=== PATIENT | female | born 1980 | race Caucasian/White ===

== ENCOUNTER 2018-12-11 06:31 | Inpatient (IN) | payer BC ==
[~2018-12-11 06:31] MED LIST: Sodium Chloride 0.9% 10 ML SDV IV PRN; Sodium Chloride 0.9% 10 ML Syringe FLUSH PRN; Sodium Chloride 0.9% 2.5 ML Syringe FLUSH PRN; ceFAZolin 2 GM in Premix Bag 1 BAG IV ONE
[2018-12-11] MEDS: Lactated Ringers 1,000 ML IV SCH ×3 (07:00→18:16)
--- NOTE | 2018-12-11 07:12 | PCM.PREANE ---
Preanesthetic Assessment - Anesthesia/Transfusion/Family Hx Anesthesia History: Prior Anesthesia Without Reaction Other Type of Anesthesia Reaction Comment: "mother had hard time coming out of anesthesia" Family History of Anesthesia Reaction: No Transfusion History: No Prior Transfusion(s) Intubation History: Unknown - Review of Systems General: No Symptoms Pulmonary: No Symptoms Cardiovascular: No Symptoms Gastrointestinal: Abdominal Pain, Nausea Neurological: No Symptoms Other: Reports: None - Physical Assessment NPO Status Date: 12/10/18 NPO Status Time: 23:00 Vital Signs: Last Vital Signs Temp 36.6 C 12/11/18 06:57 Pulse 72 12/11/18 06:57 Resp 16 12/11/18 06:57 BP 128/77 12/11/18 06:57 Pulse Ox 94 L 12/11/18 06:57 Height: 5 ft 5 in Weight: 97.522 kg ASA Class: 2 Mental Status: Alert & Oriented x3 Airway Class: Mallampati = 2 Dentition: Reports: Normal Dentition Thyro-Mental Finger Breadths: 3 Mouth Opening Finger Breadths: 3 ROM/Head Extension: Full Lungs: Clear to Auscultation, Normal Respiratory Effort Cardiovascular: Regular Rate, Regular Rhythm - Lab Values: Laboratory Last Values Urine HCG, Qual NEGATIVE (NEGATIVE) 12/11/18 06:42 - Allergies Allergies/Adverse Reactions: Allergies Allergy/AdvReac Type Severity Reaction Status Date / Time No Known Allergies Allergy Verified 12/04/18 10:43 - Blood Blood Available: No - Anesthesia Plan Pre-Op Medication Ordered: None - Acknowledgements Anesthesia Type Planned: General Anesthesia Pt an Appropriate Candidate for the Planned Anesthesia: Yes Alternatives and Risks of Anesthesia Discussed w Pt/Guardian: Yes Pt/Guardian Understands and Agrees with Anesthesia Plan: Yes PreAnesthesia Questionnaire HEENT History: Reports: None Cardiovascular History: Reports: None, Other (See Below) (occasional palpitations (on everage every other month), last one 3 months ago) Respiratory History: Reports: Other (See Below) Other Respiratory History: sleep study done on Nov 15, to be fitted with CPAP mask Gastrointestinal History: Reports: Cholelithiasis, Other (See Below) Other Gastrointestinal History: occasional heartburn Genitourinary History: Reports: UTI, Recurrent SOLE PAINTER History: Reports: Musculoskeletal History: Reports: Fracture Other Musculoskeletal History: hx fx arm as a child Neurological History: Reports: None Psychiatric History: Reports: None Endocrine/Metabolic History: Reports: Obesity/BMI 30+ Hematologic History: Reports: Anemia Other Hematologic History: anemia with pregnancies Immunologic History: Reports: None Oncologic (Cancer) History: Reports: None Dermatologic History: Reports: None - Past Surgical History Head Surgeries/Procedures: Reports: None HEENT Surgical History: Reports: None Cardiovascular Surgical History: Reports: None Respiratory Surgical History: Reports: None GI Surgical History: Reports: None Female Surgical History: Reports: None Endocrine Surgical History: Reports: None Neurological Surgical History: Reports: None Musculoskeletal Surgical History: Reports: None Oncologic Surgical History: Reports: None Dermatological Surgical History: Reports: None - SUBSTANCE USE Smoking Status *Q: Former Smoker (quit 3 years ago (smoked 1 ppd)) Tobacco Use Within Last Twelve Months: No Days Per Week of Alcohol Use: 0 Recreational Drug Use History: No - HOME MEDS Home Medications: Home Meds Ondansetron [Zofran] 4 mg PO ASDIRECTED PRN 12/04/18 [History] - CURRENT (IN HOUSE) MEDS Current Meds: Current Medications Lactated Ringer's (Ringers, Lactated) 1,000 mls @ 125 mls/hr IV ASDIRECTED DENNIS Last Admin: 12/11/18 07:00 Dose: 125 mls/hr Sodium Chloride (Saline Flush) 10 ml FLUSH ASDIRECTED PRN PRN Reason: Keep Vein Open Sodium Chloride (Saline Flush) 2.5 ml FLUSH ASDIRECTED PRN PRN Reason: Keep Vein Open Sodium Chloride (Normal Saline) 10 ml IV ASDIRECTED PRN PRN Reason: IV Use Discontinued Medications Cefazolin Sodium/Dextrose 2 gm (/ Premix) 50 mls @ 100 mls/hr IV ONETIME ONE Stop: 12/10/18 12:49
[2018-12-11] MEDS ORDERED: Propofol 200 MG/20 ML SDV ONE (07:23)
[2018-12-11] MEDS ORDERED: Midazolam 1 MG/ML 2 ML SDV ONE (07:23)
[2018-12-11] MEDS ORDERED: fentaNYL 250 MCG/5 ML SDV ONE (07:23)
[2018-12-11] MEDS ORDERED: Glycopyrrolate 0.2 MG/ML SDV ONE (07:25)
[2018-12-11] MEDS ORDERED: Ketorolac 30 MG/ML SDV ONE (07:25)
[2018-12-11] MEDS ORDERED: Neostigmine Methylsulfate 1 MG/ML 5 ML Syringe ONE (07:25)
[2018-12-11] MEDS ORDERED: Ondansetron 4 MG/2 ML SDV ONE (07:25)
[2018-12-11] MEDS ORDERED: Lidocaine 2% 5 ML SDV ONE (07:25)
[2018-12-11] MEDS ORDERED: Dexamethasone 4 MG/ML 5 ML MDV ONE (07:25)
[2018-12-11] MEDS ORDERED: Rocuronium 100 MG/10 ML Syringe ONE (07:25)
[2018-12-11] MEDS ORDERED: Bupivacaine 0.5% 30 ML SDV ONE ×2 (07:37→09:24)
[2018-12-11] MEDS ORDERED: Sodium Chloride 0.9% 20 ML ONE (08:02)
[2018-12-11] MEDS ORDERED: ceFAZolin 1 GM Vial ONE ×2 (08:02→09:24)
[2018-12-11] MEDS ORDERED: fentaNYL 100 MCG/2 ML SDV ONE ×2 (08:43→09:08)
[2018-12-11] MEDS ORDERED: Ondansetron 4 MG/2 ML SDV IVPUSH PRN (09:18)
[2018-12-11] MEDS ORDERED: HYDROmorphone 2 MG/ML Syringe IVPUSH ONE ×2 (09:18→09:40)
[2018-12-11] MEDS ORDERED: fentaNYL 100 MCG/2 ML SDV IVPUSH PRN (09:39)
[2018-12-11] MEDS ORDERED: HYDROmorphone 2 MG/ML Syringe ONE (09:48)
[2018-12-11] MEDS ORDERED: Phenylephrine/Normal Saline 100 MCG/ML 10 ML Syringe ONE (10:36)
--- NOTE | 2018-12-11 11:05 | PCM.OPNOTE ---
- General Post-Op/Procedure Note Date of Surgery/Procedure: 12/11/18 Operative Procedure(s): Laparoscopic converted to open cholecystectomy Findings: Severely inflamed gallbladder with a large stone impacted in the cystic duct Pre Op Diagnosis: symptomatic cholelithiasis Post-Op Diagnosis: Acute on chronic cholecystitis with cholelithiasis and hydrops Anesthesia Technique: General ET Tube Primary Surgeon: Radha Glover Secondary Surgeon: Finn Handy Fluid Replacement, Intraop: 1,700 Output, Urine Amount: 100 EBL in mLs: 200 Condition: Good
[2018-12-11] MEDS ORDERED: Promethazine 25 MG/ML SDV IM PRN (11:06)
[2018-12-11] MEDS ORDERED: HYDROmorphone 2 MG/ML Syringe IVPUSH PRN (11:06)
[2018-12-11] MEDS ORDERED: diphenhydrAMINE 50 MG/ML SDV IVPUSH PRN (11:06)
[2018-12-11] MEDS ORDERED: Lactated Ringers 500 ML IV SCH (11:15)
--- NOTE | 2018-12-11 12:48 | PCM.POSTAN ---
POST ANESTHESIA ASSESSMENT - MENTAL STATUS Mental Status: Alert, Oriented - VITAL SIGNS Vital Signs: Last Vital Signs Temp 36.2 C 12/11/18 11:08 Pulse 87 12/11/18 12:13 Resp 10 L 12/11/18 12:13 BP 108/70 12/11/18 12:13 Pulse Ox 95 12/11/18 12:13 - RESPIRATORY Respiratory Status: Respiratory Rate WNL, Airway Patent, O2 Saturation Stable - CARDIOVASCULAR CV Status: Pulse Rate WNL, Blood Pressure Stable - GASTROINTESTINAL GI Status: No Symptoms - PAIN Pain Score: 3 - POST OP HYDRATION Hydration Status: Adequate & Stable - OBSERVATIONS Free Text/Narrative:: No anesthesia problems
[2018-12-11] MEDS ORDERED: FLU Vacc QS2019-20(6MOS+)/PF 60 MCG/0.5 ML SYRINGE IM ONE (15:30)
[2018-12-11] MEDS: Ketorolac 15 MG/ML SDV IVPUSH SCH ×2 (16:13→23:09)
--- NOTE | 2018-12-11 16:56 | OR ---
SURGEON: RADHA SAHU MD DATE OF PROCEDURE: 12/11/2018 PREOPERATIVE DIAGNOSIS: Symptomatic cholelithiasis. POSTOPERATIVE DIAGNOSIS: Severe chronic cholecystitis with cholelithiasis. PROCEDURE PERFORMED: Laparoscopic converted to open cholecystectomy. PRIMARY SURGEON: Radha Sahu MD. SECONDARY SURGEON: Finn Handy M.D. FLUIDS: 1700 mL crystalloid. ESTIMATED BLOOD LOSS: 200 mL. URINE OUTPUT: 100 mL. ANESTHESIA: General endotracheal anesthesia. FINDINGS: Severely inflamed gallbladder with large stone impacted in the cystic duct. COMPLICATIONS: None. INDICATIONS: The patient is a 38-year-old female who presented to my office with recent episode of symptomatic cholelithiasis. I explained to the patient the need for a cholecystectomy. I explained the laparoscopic approach, but I explained that should I be unable to perform it safely, I will convert it to open. The patient and I discussed the procedure, expected perioperative course, and risks including bleeding, infection, or damage to surrounding structures. The patient verbalized understanding and wishes to proceed. PROCEDURE IN DETAIL: The patient was brought to the OR and placed on the OR table in supine position. A time-out was completed verifying the patient's name, age, date of , allergies, and procedure to be performed. General endotracheal anesthesia was induced. The left arm was tucked to the patient's side and a Washington catheter placed. The abdomen was prepped and draped in usual standard fashion. I anesthetized the infraumbilical fold with 0.5% Marcaine plain. I then used an 11 blade to make an incision along this fold. Cautery was used to dissect down to the level of the subcutaneous fat. I then bluntly dissected down to the fascia. The fascia was elevated with Deborah's and incised sharply with Metzenbaum scissors. Entry to the abdomen was palpated digitally. Stay sutures were placed on either side of the fascia using 0 Vicryl suture. A 12 mm Sherin trocar was placed in the abdomen and the abdomen insufflated. A 5 mm 30-degree scope was inserted in the abdomen and I inspected the area underneath my initial trocar placement. This appeared normal and there was no evidence of damage to surrounding structures. The patient was placed into reverse Trendelenburg position and airplaned slightly to the left. 5 mm trocars were placed in the following locations; one in the epigastric area, one along the right flank, and one 2 fingerbreadths below the right subcostal margin in the midclavicular line. The dome of the gallbladder was grasped and elevated. The infundibulum was then grasped with another atraumatic grasper and I started to take down the attachments around the proximal half of the gallbladder with a hook cautery and gentle blunt dissection. The proximal half of the gallbladder was thickened, firm and impacted with multiple gallstones. I was able to clear away some of the attachments around what appeared to be the cystic duct; however, this appeared to be impacted with stones as well. The more I tried to dissect the cystic duct and proximal half of the gallbladder away from the surrounding structures, the more it bled. Given the thickened and inflamed tissue and the difficulty I had creating my dissection plane, the decision was made to proceed with open. The other reason I decided to proceed with an open approach was that the gallbladder was intrahepatic. The 12 mm Sherin trocar and 5 mm trocars were removed. I closed the fascia at the infraumbilical port site with interrupted 0 Vicryl sutures. I then turned my attention to the right upper quadrant. I anesthetized the skin in the right upper quadrant with 0.5% Marcaine plain. A 10 blade was then used to connect the epigastric and midclavicular port site with an oblique incision 2 fingerbreadths below the right subcostal margin. Cautery was used to dissect down through the layers of the abdominal wall until I reached the peritoneum. The peritoneum was elevated with hemostat and incised sharply. I then carried my incision both medially and laterally. The gallbladder and liver edge were then exposed using retractors. Dr. Finn Handy was called into the case to assist. Using sharp dissection with the Metzenbaum scissors and blunt dissection with a Kittner, we were able to take down some of the attachments of the proximal gallbladder to surrounding structures. However, given how dense these were, we decided to take a dome down approach in order to safely identify her proximal structures. Given the intrahepatic nature of the gallbladder and the amount of inflammation, it was difficult to create a plane between the gallbladder and the gallbladder fossa. During several instances, we dissected into the liver bed itself. All bleeding was controlled with cautery and clips. Once we freed up the distal half of the gallbladder, we were able to better identify her proximal structures. We came down upon the structure that appeared to be the cystic artery. This was doubly clipped and ligated. Overlying the cystic duct was a small vascular structure. This was tied with a 0 Vicryl suture and clipped and ligated. Then, using a Kittner we were able to dissect free the cystic duct. We could see where it inserted on the common bile duct. Given that this was our only structure left, we then doubly ligated and cut the cystic duct close to where it inserted on the gallbladder. When we were finished, the gallbladder was passed off the field and sent to Pathology labeled as gallbladder. We inspected her operative field. Grossly, it appeared to be hemostatic. The abdomen was irrigated with warm Ancef saline solution, which was then suctioned out. The gallbladder bed was then packed with Surgicel and Avitene and pressure was held for 2 minutes. At the end of 2 minutes, the fieldd was reinspected. It was hemostatic with no bile leakage. A 19-Kyrgyz Miky drain was brought in through the right lateral port site and placed in the gallbladder fossa. It was secured to the skin using a 2-0 of silk suture. The peritoneum and posterior fascia were closed with a running 0 Vicryl sutures. The anterior fascia was closed with interrupted 0 Ethibond sutures. An On-Q pump was then placed over the top of the anterior fascia. The subcutaneous fat layer was closed with a running 3-0 Vicryl stitch. The skin was closed with skin jose antonio. The infraumbilical port site skin was closed with jose antonio. Sterile dressings were applied. All counts were complete at the end of the case. The patient was taken to the PACU in stable condition. FOREIGN PERSON /[id number] ANNA
[2018-12-11] MEDS: Acetaminophen/oxyCODONE 325-5 MG Tab PO PRN (20:33)
[2018-12-12] MEDS: Lactated Ringers 1,000 ML IV SCH (01:42)
[2018-12-12] MEDS: Ketorolac 15 MG/ML SDV IVPUSH SCH ×2 (05:48→11:17)
[2018-12-12 06:43] LABS: BLOOD UREA NITROGEN,BUN 13 mg/dL (7.0-18.0); CARBON DIOXIDE,CO2 28.4 mmol/L (21.0-32.0); CHLORIDE,CL 105 mmol/L (98-107); GLUCOSE RANDOM 101 mg/dL (74-106); POTASSIUM,K 3.9 mmol/L (3.5-5.1); SODIUM,NA 140 mmol/L (136-145)
--- NOTE | 2018-12-12 06:54 | PCM48HPAN ---
Post Anesthesia Note - EVALUATION WITHIN 48HRS OF ANESTHETIC Vital Signs in Normal Range: Yes Patient Participated in Evaluation: Yes Respiratory Function Stable: Yes Airway Patent: Yes Cardiovascular Function Stable: Yes Hydration Status Stable: Yes Pain Control Satisfactory: Yes Nausea and Vomiting Control Satisfactory: Yes Mental Status Recovered: Yes Vital Signs: Last Vital Signs Temp 36.8 C 12/12/18 04:00 Pulse 69 12/12/18 04:00 Resp 14 12/12/18 04:00 BP 116/75 12/12/18 04:00 Pulse Ox 97 12/12/18 04:00 - COMMENTS/OBSERVATIONS Free Text/Narrative:: no anesthesia problems
[2018-12-12] MEDS: Acetaminophen/oxyCODONE 325-5 MG Tab PO PRN ×3 (08:18→19:18)
--- NOTE | 2018-12-12 08:30 | PCM.SURGPN ---
- General Info Date of Service: 12/12/18 Functional Status: Reports: Pain Controlled, Tolerating Diet, Ambulating, Urinating - Review of Systems General: Reports: No Symptoms HEENT: Reports: No Symptoms Pulmonary: Reports: No Symptoms Cardiovascular: Reports: No Symptoms Gastrointestinal: Reports: No Symptoms Genitourinary: Reports: No Symptoms - Patient Data Vitals - Most Recent: Last Vital Signs Temp 36.3 C 12/12/18 07:42 Pulse 75 12/12/18 07:42 Resp 18 12/12/18 07:42 BP 129/66 12/12/18 07:42 Pulse Ox 98 12/12/18 07:42 Weight - Most Recent: 97.522 kg I&O - Last 24 Hours: Intake & Output 12/11/18 12/12/18 12/12/18 22:59 06:59 14:59 Intake Total 495 2143 Output Total 330 890 Balance 165 1253 Lab Results Last 24 Hrs: Laboratory Results - last 24 hr 12/12/18 12/12/18 Range/Units 06:00 06:00 WBC 9.76 (4.0-11.0) K/uL RBC 3.48 L (4.30-5.90) M/uL Hgb 10.9 L (12.0-16.0) g/dL Hct 32.9 L (36.0-46.0) % MCV 94.5 (80.0-98.0) fL MCH 31.3 (27.0-32.0) pg MCHC 33.1 (31.0-37.0) g/dL RDW Std Deviation 46.0 (28.0-62.0) fl RDW Coeff of Roberta 13 (11.0-15.0) % Plt Count 191 (150-400) K/uL MPV 11.50 (7.40-12.00) fL Neut % (Auto) 74.5 (48.0-80.0) % Lymph % (Auto) 17.6 (16.0-40.0) % Daniels % (Auto) 7.3 (0.0-15.0) % Eos % (Auto) 0.5 (0.0-7.0) % Baso % (Auto) 0.1 (0.0-1.5) % Neut # (Auto) 7.3 H (1.4-5.7) K/uL Lymph # (Auto) 1.7 (0.6-2.4) K/uL Daniels # (Auto) 0.7 (0.0-0.8) K/uL Eos # (Auto) 0.1 (0.0-0.7) K/uL Baso # (Auto) 0.0 (0.0-0.1) K/uL Nucleated RBC % 0.0 /100WBC Nucleated RBCs # 0 K/uL Sodium 140 (136-145) mmol/L Potassium 3.9 (3.5-5.1) mmol/L Chloride 105 (98-107) mmol/L Carbon Dioxide 28.4 (21.0-32.0) mmol/L BUN 13 (7.0-18.0) mg/dL Creatinine 0.9 (0.6-1.0) mg/dL Est Cr Clr Drug Dosing 76.26 mL/min Estimated GFR (MDRD) > 60.0 ml/min Glucose 101 (74-106) mg/dL Calcium 8.3 L (8.5-10.1) mg/dL Total Bilirubin 0.5 (0.2-1.0) mg/dL AST 38 H (15-37) IU/L ALT 54 (14-63) IU/L Alkaline Phosphatase 71 (46-116) U/L Total Protein 6.2 L (6.4-8.2) g/dL Albumin 2.8 L (3.4-5.0) g/dL Globulin 3.4 (2.6-4.0) g/dL Albumin/Globulin Ratio 0.8 L (0.9-1.6) Med Orders - Current: Current Medications Diphenhydramine HCl (Benadryl) 25 mg IVPUSH Q4H PRN PRN Reason: Itching Last Admin: 12/11/18 11:41 Dose: 25 mg Enoxaparin Sodium (Lovenox) 40 mg SUBCUT Q24H DENNIS Fentanyl (Sublimaze) 50 - 100 mcg IVPUSH Q5M PRN PRN Reason: Pain (severe 7-10) Hydromorphone HCl (Dilaudid) 0.5 mg IVPUSH Q1H PRN PRN Reason: Pain (severe 7-10) Influenza Virus Vaccine (Fluzone Quad [id number] Syringe) 60 mcg IM .ONCE ONE Stop: 12/13/18 15:31 Ketorolac Tromethamine (Toradol) 15 mg IVPUSH Q6H DENNIS Stop: 12/12/18 11:01 Last Admin: 12/12/18 05:48 Dose: 15 mg Multivitamins/Minerals/Vitamin C (Tab-A-Paola) 1 tab PO DAILY [facility] Ondansetron HCl (Zofran) 4 mg IVPUSH Q4H PRN PRN Reason: Nausea Oxycodone/Acetaminophen (Percocet 325-5 Mg) 2 tab PO Q4H PRN PRN Reason: Pain (moderate 4-6) Last Admin: 12/12/18 08:18 Dose: 2 tab Polyethylene Glycol (Miralax) 17 gm PO DAILY [facility] Promethazine HCl (Phenergan) 12.5 mg IM Q6H PRN PRN Reason: Nausea Sodium Chloride (Saline Flush) 10 ml FLUSH ASDIRECTED PRN PRN Reason: Keep Vein Open Sodium Chloride (Saline Flush) 2.5 ml FLUSH ASDIRECTED PRN PRN Reason: Keep Vein Open Sodium Chloride (Normal Saline) 10 ml IV ASDIRECTED PRN PRN Reason: IV Use Discontinued Medications Bupivacaine HCl (Marcaine 0.5%) Confirm Administered Dose 30 ml .ROUTE .STK-MED ONE Stop: 12/11/18 07:38 Bupivacaine HCl (Marcaine 0.5%) Confirm Administered Dose 90 ml .ROUTE .STK-MED ONE Stop: 12/11/18 09:25 Cefazolin Sodium (Ancef) Confirm Administered Dose 2 gm .ROUTE .STK-MED ONE Stop: 12/11/18 08:03 Cefazolin Sodium (Ancef) Confirm Administered Dose 1 gm .ROUTE .STK-MED ONE Stop: 12/11/18 09:25 Dexamethasone (Dexamethasone) Confirm Administered Dose 20 mg .ROUTE .STK-MED ONE Stop: 12/11/18 07:26 Fentanyl (Sublimaze) Confirm Administered Dose 250 mcg .ROUTE .STK-MED ONE Stop: 12/11/18 07:24 Fentanyl (Sublimaze) Confirm Administered Dose 100 mcg .ROUTE .STK-MED ONE Stop: 12/11/18 08:44 Fentanyl (Sublimaze) Confirm Administered Dose 100 mcg .ROUTE .STK-MED ONE Stop: 12/11/18 09:09 Glycopyrrolate (Robinul) Confirm Administered Dose 0.8 mg .ROUTE .STK-MED ONE Stop: 12/11/18 07:26 Hydromorphone HCl (Dilaudid) 1 mg IVPUSH .STK-MED ONE Stop: 12/11/18 09:19 Hydromorphone HCl (Dilaudid) 1 mg IVPUSH ONETIME ONE Stop: 12/11/18 09:41 Last Admin: 12/11/18 11:36 Dose: 0.5 mg Hydromorphone HCl (Dilaudid) Confirm Administered Dose 2 mg .ROUTE .STK-MED ONE Stop: 12/11/18 09:49 Cefazolin Sodium/Dextrose 2 gm (/ Premix) 50 mls @ 100 mls/hr IV ONETIME ONE Stop: 12/10/18 12:49 Last Admin: 12/11/18 12:51 Dose: Not Given Lactated Ringer's (Ringers, Lactated) 1,000 mls @ 125 mls/hr IV ASDIRECTED [facility] Last Admin: 12/12/18 01:42 Dose: 125 mls/hr Sodium Chloride (Normal Saline) Confirm Administered Dose 20 mls @ as directed .ROUTE .STK-MED ONE Stop: 12/11/18 08:03 Lactated Ringer's (Ringers, Lactated) 500 mls @ 500 mls/hr IV ASDIRECTED [facility] Influenza Virus Vaccine (Pharmacy To Dose - Influenza Vaccine) 1 each IM ONETIME ONE Stop: 12/13/18 08:01 Influenza Virus Vaccine (Fluzone Quad [id number] Syringe) 60 mcg IM .ONCE ONE Stop: 12/11/18 15:31 Ketorolac Tromethamine (Toradol) Confirm Administered Dose 30 mg .ROUTE .STK- MED ONE Stop: 12/11/18 07:26 Lidocaine (Xylocaine-Mpf 2%) Confirm Administered Dose 5 ml .ROUTE .STK-MED ONE Stop: 12/11/18 07:26 Midazolam HCl (Versed 1 Mg/Ml) Confirm Administered Dose 2 mg .ROUTE .STK-MED ONE Stop: 12/11/18 07:24 Neostigmine Methylsulfate (Neostigmine) Confirm Administered Dose 5 mg .ROUTE .STK-MED ONE Stop: 12/11/18 07:26 Ondansetron HCl (Zofran) Confirm Administered Dose 4 mg .ROUTE .STK-MED ONE Stop: 12/11/18 07:26 Phenylephrine HCl (Phenylephrine In Ns 100 Mcg/Ml) Confirm Administered Dose 1 mg .ROUTE .STK-MED ONE Stop: 12/11/18 10:37 Propofol (Diprivan 20 Ml) Confirm Administered Dose 200 mg .ROUTE .STK-MED ONE Stop: 12/11/18 07:24 Rocuronium Leonard (Zemuron) Confirm Administered Dose 100 mg .ROUTE .STK-MED ONE Stop: 12/11/18 07:26 - Exam Wound/Incisions: Healing Well, Dressing Dry and Intact General: Alert, Oriented HEENT: Pupils Equal, Pupils Reactive Lungs: Normal Respiratory Effort Cardiovascular: Regular Rate GI/Abdominal Exam: Soft, Non-Tender, No Distention Skin: Warm, Dry, Intact Neurological: No New Focal Deficit Physical Findings Comment:: Dressings clean dry and intact. Miky drain has dark sanguinous output. minimal bile staining - Problem List Review Problem List Initiated/Reviewed/Updated: Yes - My Orders Last 24 Hours: Active Orders 24 hr Category Date Time Status Patient Status [ADT] Routine ADT 12/11/18 11:06 Active Influenza Vaccine Charge [RC] .DISCHARGE Care 12/11/18 15:20 Active Intake and Output [RC] Q4HR Care 12/11/18 11:06 Active Notify Provider Vital Signs [RC] PRN Care 12/11/18 11:07 Active Overnight Pulse Oximetry [RC] Click to Edit Care 12/11/18 10:43 Active Oxygen Therapy [RC] PRN Care 12/11/18 11:06 Active RT Incentive Spirometry [RC] Q1HWA Care 12/11/18 11:06 Active Up ad Kiara [RC] ASDIRECTED Care 12/11/18 11:06 Active Urinary Catheter Assessment [RC] Q4H Care 12/11/18 11:06 Active Vital Signs [RC] Q4H Care 12/11/18 11:06 Active Regular Diet [DIET] Diet 12/12/18 Lunch Ordered Acetaminophen/oxyCODONE [Percocet 325-5 MG] Med 12/11/18 11:06 Active 2 tab PO Q4H PRN Enoxaparin [Lovenox] Med 12/12/18 08:30 Ordered 40 mg SUBCUT Q24H FLU Vacc [id number](6MOS+)/PF [Fluzone Quad Med 12/13/18 15:30 Once Syringe] 60 mcg IM .ONCE ONE HYDROmorphone [Dilaudid] Med 12/11/18 11:06 Active 0.5 mg IVPUSH Q1H PRN Ketorolac [Toradol] Med 12/11/18 17:00 Active 15 mg IVPUSH Q6H Multivitamins [Tab-A-Paola] Med 12/12/18 09:00 Ordered 1 tab PO DAILY Ondansetron [Zofran] Med 12/11/18 09:18 Active 4 mg IVPUSH Q4H PRN Polyethylene Glycol 3350 [MiraLAX] Med 12/12/18 09:00 Ordered 17 gm PO DAILY Promethazine [Phenergan] Med 12/11/18 11:06 Active 12.5 mg IM Q6H PRN diphenhydrAMINE [Benadryl] Med 12/11/18 11:06 Active 25 mg IVPUSH Q4H PRN fentaNYL [Sublimaze] Med 12/11/18 09:39 Active 50 - 100 mcg IVPUSH Q5M PRN Medication Orders Diphenhydramine HCl (Benadryl) 25 mg IVPUSH Q4H PRN PRN Reason: Itching Last Admin: 12/11/18 11:41 Dose: 25 mg Enoxaparin Sodium (Lovenox) 40 mg SUBCUT Q24H DENNIS Fentanyl (Sublimaze) 50 - 100 mcg IVPUSH Q5M PRN PRN Reason: Pain (severe 7-10) Hydromorphone HCl (Dilaudid) 0.5 mg IVPUSH Q1H PRN PRN Reason: Pain (severe 7-10) Influenza Virus Vaccine (Fluzone Quad Syringe) 60 mcg IM .ONCE ONE Stop: 12/13/18 15:31 Ketorolac Tromethamine (Toradol) 15 mg IVPUSH Q6H DENNIS Stop: 12/12/18 11:01 Last Admin: 12/12/18 05:48 Dose: 15 mg Admin: 12/11/18 23:09 Dose: 15 mg Admin: 12/11/18 16:13 Dose: 15 mg Multivitamins/Minerals/Vitamin C (Tab-A-Paola) 1 tab PO DAILY [facility] Ondansetron HCl (Zofran) 4 mg IVPUSH Q4H PRN PRN Reason: Nausea Oxycodone/Acetaminophen (Percocet 325-5 Mg) 2 tab PO Q4H PRN PRN Reason: Pain (moderate 4-6) Last Admin: 12/12/18 08:18 Dose: 2 tab Admin: 12/11/18 20:33 Dose: 2 tab Polyethylene Glycol (Miralax) 17 gm PO DAILY [facility] Promethazine HCl (Phenergan) 12.5 mg IM Q6H PRN PRN Reason: Nausea Sodium Chloride (Saline Flush) 10 ml FLUSH ASDIRECTED PRN PRN Reason: Keep Vein Open Sodium Chloride (Saline Flush) 2.5 ml FLUSH ASDIRECTED PRN PRN Reason: Keep Vein Open Sodium Chloride (Normal Saline) 10 ml IV ASDIRECTED PRN PRN Reason: IV Use - Plan Plan (Free Text/Narrative):: The patient is doing exceptionally well on postop day #1. Her pain is controlled with scheduled Toradol and prn [place]. She has had 100 mils of dark sanguinous output from her drain which I would expect. We will leave this in place for today. Her labs all look well. I expect her hemoglobin to be down some due to blood loss from the case. Her platelets are within normal range. LFTs are within normal range. Will discontinue [place] catheter today. Advance to regular diet and add a multivitamin. Add MiraLAX for bowel regularity. I will also discontinue IV fluids. Encourage patient to be up and walking today. will start Lovenox for DVT prophylaxis Anticipate discharge home tomorrow.
[2018-12-12] MEDS: Multivitamin Tab PO SCH (08:34)
[2018-12-12] MEDS: Enoxaparin 40 MG/0.4 ML Syringe SUBCUT SCH (08:35)
[2018-12-12] MEDS: Polyethylene Glycol 3350 Powder 17 GM Packet PO SCH (08:35)
[2018-12-13] MEDS: Acetaminophen/oxyCODONE 325-5 MG Tab PO PRN ×2 (04:24→09:48)
--- NOTE | 2018-12-13 08:45 | PCM.DCSUM1 ---
Discharge Summary - Hospital Course Free Text/Narrative:: Patient was a 38 year old female who presented for an elective cholecystectomy for symptomatic cholelithiasis. Intraoperatively she was found to have severe inflammation of the gallbladder with impacted stones in the proximal gallbladder. The case was converted from laparoscopic to open. The gallbladder was able to be safely removed. She was admitted to the floor afterwards. She had no issues post-operatively. Her vitals remained stable. With scheduled toradol and prn norco her pain was well controlled. Her diet was slowly advanced without difficulty. She ambulated without difficulty. POD #1 her labs were relatively stable. Her drain put out minimal dark serosanguinous fluid with no evidence of bile staining.POD #2 her drains and dressings were removed. There was some bruising along the incision, but this was minimal. Her abdominal exam was otherwise normal. She was cleared for discharge. - Discharge Data Discharge Date: 12/13/18 Discharge Disposition: Home, Self-Care 01 Condition: Good - Referral to Home Health Primary Care Physician: XUAN Sauer - Discharge Diagnosis/Problem(s) (1) Chronic cholecystitis due to gallbladder calculus with obstruction SNOMED Code(s): 6263792100209859 ICD Code: K80.11 - CALCULUS OF GALLBLADDER W CHRONIC CHOLECYST W OBSTRUCTION Status: Acute Current Visit: Yes - Patient Summary/Data Operative Procedure(s) Performed: Laparoscopic converted to open cholecystectomy - Patient Instructions Diet: Regular Diet as Tolerated Activity: No Lifting Over 20 Pounds (for six weeks ), Rest and Relax Today Activity, Other: No work for 2 weeks Driving: Do Not Drive (for one week ) Showering/Bathing: May Shower, No Tub Bathing/Swimming (for 2 weeks) Wound/Incision Care: Keep Operative Site/Wound Site Clean and Dry Notify Provider of: Fever, Increased Pain, Swelling and Redness, Drainage, Nausea and/or Vomiting - Discharge Plan *PRESCRIPTION DRUG MONITORING PROGRAM REVIEWED*: Yes *COPY OF PRESCRIPTION DRUG MONITORING REPORT IN PATIENT ANGELITA: Yes Prescriptions/Med Rec: Polyethylene Glycol 3350 [MiraLAX] 17 gm PO DAILY #14 packet Home Medications: Home Meds Ondansetron [Zofran] 4 mg PO ASDIRECTED PRN 12/04/18 [History] Acetaminophen [Tylenol] 325 mg PO Q6H PRN 12/11/18 [History] Multivitamins [Tab-A-Paola] 1 tab PO DAILY tablet 12/13/18 [Rx] Polyethylene Glycol 3350 [MiraLAX] 17 gm PO DAILY #14 packet 12/13/18 [Rx] Patient Handouts: Acetaminophen; Oxycodone tablets, Laparoscopic Cholecystectomy, Care After, [id number], Ketorolac tablets, Polyethylene Glycol powder Referrals: Radha Glover MD [Physician] - 12/19/18 9:30 am - Discharge Summary/Plan Comment DC Time >30 min.: No - General Info Functional Status: Reports: Pain Controlled, Tolerating Diet, Ambulating, Urinating - Review of Systems General: Reports: No Symptoms HEENT: Reports: No Symptoms Pulmonary: Reports: No Symptoms Cardiovascular: Reports: No Symptoms Gastrointestinal: Reports: No Symptoms Genitourinary: Reports: No Symptoms Musculoskeletal: Reports: No Symptoms Skin: Reports: No Symptoms - Patient Data Vitals - Most Recent: Last Vital Signs Temp 36.3 C 12/13/18 07:26 Pulse 72 12/13/18 07:26 Resp 18 12/13/18 07:26 BP 143/67 H 12/13/18 07:26 Pulse Ox 94 L 12/13/18 07:26 Weight - Most Recent: 97.522 kg I&O - Last 24 hours: Intake & Output 12/12/18 12/13/18 12/13/18 22:59 06:59 14:59 Intake Total 700 800 Output Total 740 2325 Balance -40 -1525 Med Orders - Current: Current Medications Diphenhydramine HCl (Benadryl) 25 mg IVPUSH Q4H PRN PRN Reason: Itching Last Admin: 12/11/18 11:41 Dose: 25 mg Enoxaparin Sodium (Lovenox) 40 mg SUBCUT Q24H DENNIS Last Admin: 12/12/18 08:35 Dose: 40 mg Fentanyl (Sublimaze) 50 - 100 mcg IVPUSH Q5M PRN PRN Reason: Pain (severe 7-10) Hydromorphone HCl (Dilaudid) 0.5 mg IVPUSH Q1H PRN PRN Reason: Pain (severe 7-10) Influenza Virus Vaccine (Fluzone Quad [id number] Syringe) 60 mcg IM .ONCE ONE Stop: 12/13/18 15:31 Multivitamins/Minerals/Vitamin C (Tab-A-Paola) 1 tab PO DAILY [facility] Last Admin: 12/12/18 08:34 Dose: 1 tab Ondansetron HCl (Zofran) 4 mg IVPUSH Q4H PRN PRN Reason: Nausea Oxycodone/Acetaminophen (Percocet 325-5 Mg) 2 tab PO Q4H PRN PRN Reason: Pain (moderate 4-6) Last Admin: 12/13/18 04:24 Dose: 2 tab Polyethylene Glycol (Miralax) 17 gm PO DAILY [facility] Last Admin: 12/12/18 08:35 Dose: 17 gm Promethazine HCl (Phenergan) 12.5 mg IM Q6H PRN PRN Reason: Nausea Sodium Chloride (Saline Flush) 10 ml FLUSH ASDIRECTED PRN PRN Reason: Keep Vein Open Sodium Chloride (Saline Flush) 2.5 ml FLUSH ASDIRECTED PRN PRN Reason: Keep Vein Open Sodium Chloride (Normal Saline) 10 ml IV ASDIRECTED PRN PRN Reason: IV Use Discontinued Medications Bupivacaine HCl (Marcaine 0.5%) Confirm Administered Dose 30 ml .ROUTE .STK-MED ONE Stop: 12/11/18 07:38 Bupivacaine HCl (Marcaine 0.5%) Confirm Administered Dose 90 ml .ROUTE .STK-MED ONE Stop: 12/11/18 09:25 Cefazolin Sodium (Ancef) Confirm Administered Dose 2 gm .ROUTE .STK-MED ONE Stop: 12/11/18 08:03 Cefazolin Sodium (Ancef) Confirm Administered Dose 1 gm .ROUTE .STK-MED ONE Stop: 12/11/18 09:25 Dexamethasone (Dexamethasone) Confirm Administered Dose 20 mg .ROUTE .STK-MED ONE Stop: 12/11/18 07:26 Fentanyl (Sublimaze) Confirm Administered Dose 250 mcg .ROUTE .STK-MED ONE Stop: 12/11/18 07:24 Fentanyl (Sublimaze) Confirm Administered Dose 100 mcg .ROUTE .STK-MED ONE Stop: 12/11/18 08:44 Fentanyl (Sublimaze) Confirm Administered Dose 100 mcg .ROUTE .STK-MED ONE Stop: 12/11/18 09:09 Glycopyrrolate (Robinul) Confirm Administered Dose 0.8 mg .ROUTE .STK-MED ONE Stop: 12/11/18 07:26 Hydromorphone HCl (Dilaudid) 1 mg IVPUSH .STK-MED ONE Stop: 12/11/18 09:19 Hydromorphone HCl (Dilaudid) 1 mg IVPUSH ONETIME ONE Stop: 12/11/18 09:41 Last Admin: 12/11/18 11:36 Dose: 0.5 mg Hydromorphone HCl (Dilaudid) Confirm Administered Dose 2 mg .ROUTE .STK-MED ONE Stop: 12/11/18 09:49 Cefazolin Sodium/Dextrose 2 gm (/ Premix) 50 mls @ 100 mls/hr IV ONETIME ONE Stop: 12/10/18 12:49 Last Admin: 12/11/18 12:51 Dose: Not Given Lactated Ringer's (Ringers, Lactated) 1,000 mls @ 125 mls/hr IV ASDIRECTED [facility] Last Admin: 12/12/18 01:42 Dose: 125 mls/hr Sodium Chloride (Normal Saline) Confirm Administered Dose 20 mls @ as directed .ROUTE .STK-MED ONE Stop: 12/11/18 08:03 Lactated Ringer's (Ringers, Lactated) 500 mls @ 500 mls/hr IV ASDIRECTED [facility] Influenza Virus Vaccine (Pharmacy To Dose - Influenza Vaccine) 1 each IM ONETIME ONE Stop: 12/13/18 08:01 Influenza Virus Vaccine (Fluzone Quad [id number] Syringe) 60 mcg IM .ONCE ONE Stop: 12/11/18 15:31 Ketorolac Tromethamine (Toradol) Confirm Administered Dose 30 mg .ROUTE .STK- MED ONE Stop: 12/11/18 07:26 Ketorolac Tromethamine (Toradol) 15 mg IVPUSH Q6H [facility] Stop: 12/12/18 11:01 Last Admin: 12/12/18 11:17 Dose: 15 mg Lidocaine (Xylocaine-Mpf 2%) Confirm Administered Dose 5 ml .ROUTE .STK-MED ONE Stop: 12/11/18 07:26 Midazolam HCl (Versed 1 Mg/Ml) Confirm Administered Dose 2 mg .ROUTE .STK-MED ONE Stop: 12/11/18 07:24 Neostigmine Methylsulfate (Neostigmine) Confirm Administered Dose 5 mg .ROUTE .STK-MED ONE Stop: 12/11/18 07:26 Ondansetron HCl (Zofran) Confirm Administered Dose 4 mg .ROUTE .STK-MED ONE Stop: 12/11/18 07:26 Phenylephrine HCl (Phenylephrine In Ns 100 Mcg/Ml) Confirm Administered Dose 1 mg .ROUTE .STK-MED ONE Stop: 12/11/18 10:37 Propofol (Diprivan 20 Ml) Confirm Administered Dose 200 mg .ROUTE .STK-MED ONE Stop: 12/11/18 07:24 Rocuronium [place] (Zemuron) Confirm Administered Dose 100 mg .ROUTE .STK-MED ONE Stop: 12/11/18 07:26 - Exam General: Reports: Alert, Oriented HEENT: Reports: Pupils Equal, Pupils Reactive Lungs: Reports: Normal Respiratory Effort Cardiovascular: Reports: Regular Rate GI/Abdominal Exam: Soft, Non-Tender, No Distention, Other (Incisions appear clean dry intact with a little bit of echymosis ) Back Exam: Reports: Normal Inspection, Full Range of Motion Extremities: Normal Inspection Skin: Reports: Warm, Dry, Intact Wound/Incisions: Reports: Healing Well
[2018-12-13] MEDS: Enoxaparin 40 MG/0.4 ML Syringe SUBCUT SCH (08:49)
[2018-12-13] MEDS: Polyethylene Glycol 3350 Powder 17 GM Packet PO SCH (08:51)
[2018-12-13] MEDS: Multivitamin Tab PO SCH (08:51)
[2018-12-13] MEDS ORDERED: Diphtheria,Pertussis(Acell),Tetanus Vaccine 0.5 ML Syringe IM ONE (10:09)
[2018-12-13] MEDS ORDERED: FLU Vacc QS2019-20(6MOS+)/PF 60 MCG/0.5 ML SYRINGE IM ONE (11:30)
== END 2018-12-13 13:05 | disposition home or self-care (01) | DRG 263 ==
LOC: MW.SDS 06:31 → MW.MS 11:16
PROVIDERS: ADMIT Surgery; ATTEND Surgery
PROC: 0FT40ZZ Resection of Gallbladder, Open Approach (ICD-10-PCS; principal; 2018-12-11)
PROC: 0FJ44ZZ Inspection of Gallbladder, Percutaneous Endoscopic Approach (ICD-10-PCS; 2018-12-11)
PROC: 3E02340 Introduction of Influenza Vaccine into Muscle, Percutaneous Approach (ICD-10-PCS; 2018-12-13)
DX: K80.11 Calculus of gallbladder with chronic cholecystitis with obstruction (principal); E66.9 Obesity, unspecified; J45.909 Unspecified asthma, uncomplicated; G47.30 Sleep apnea, unspecified; D64.9 Anemia, unspecified; Z87.891 Personal history of nicotine dependence; Z23 Encounter for immunization; Z68.35 Body mass index [BMI] 35.0-35.9, adult
CPT/HCPCS: 00790; 36415; 80053; 81025; 85025; 88304; 90471; 90686; 90715; A9270-GY; G0008; J0690; J1100; J1170; J1200; J1650; J1885; J2001; J2250; J2370; J2405; J2704; J3010; J3490; J7120